=== PATIENT | female | born 2000 | race Caucasian/White ===

== ENCOUNTER 2024-03-17 13:28 | Day surgery (SDC) | payer OTHER ==
[2024-03-17] MEDS ORDERED: Decadron 4 MG INJ IV ONE (13:29)
[2024-03-17] MEDS ORDERED: Sodium Chloride 0.9(Preservative Free) 10 ML IJ ONE (13:29)
[2024-03-17 14:08] LABS: HCG URINE TEST NEGATIVE (NEGATIVE)
[2024-03-17] MEDS ORDERED: DIPRIVAN 200 MG/20 ML IV ONE (15:27)
[2024-03-17] MEDS ORDERED: MORPHINE SULFATE 2 MG INJ ONE (15:44)
--- NOTE | 2024-03-17 17:00 | XRAY ---
Indication: Right L4-S1 transforaminal PAIGE. Intraoperative fluoroscopy provided for 23 seconds. 5 digital spot image submitted for interpretation demonstrates posterior needle tips projecting over the expected right L4 and L5 nerve roots. Small amount of contrast injected for needle tip placement. Correlate with intraoperative findings/report.
--- NOTE | 2024-03-17 17:20 | XRAY ---
23 seconds of fluoroscopy was used in surgery for a right L4-S1 transforaminal PAIGE.
== END 2024-03-17 16:08 | disposition home or self-care (01) ==
LOC: SDC-PAIN 13:28
PROVIDERS: ATTEND Psychiatry & Neurology Pain Medicine
DX: M54.16 Radiculopathy, lumbar region (principal)
CPT/HCPCS: 64483; 64484; 72100; 77003; 81025; J1100; J2270; J2704; Q9966